=== PATIENT | female | born 1985 | race Caucasian/White ===

== ENCOUNTER 2017-01-08 14:10 | Outpatient (CLI) | payer OTHER ==
--- NOTE | 2017-01-13 10:45 | DIAGNOSTIC IMAGING REPORT ---
PROCEDURE: US SOFT TISSUE THYR/NECK/HEAD INDICATION: LYMPHADENOPATHY X 1YEAR TECHNIQUE: Tapia scale and color Doppler sonographic images of the neck were obtained. COMPARISON: None. FINDINGS: Bilateral lymph nodes inferior to the mandible, 2.4 x 1.1 x 0.5 cm on the left and 2.6 x 1.5 x 0.5 cm on the right. There are smaller diameter nodes seen along cervical chain bilaterally. There appears to be diminutive central fatty hilum and there is no increased vascularity. IMPRESSION: 1. Bilateral cervical adenopathy, likely reactive . Neoplastic changes are not excluded. If there has been significant increase in the size of the lymph nodes or if these are suspicious clinically, CT scan of the neck should be obtained. 2. Results discussed with Dr. Ann (Shira Varghese was not available).
== END 2017-01-08 23:00 | disposition home or self-care (01) ==
LOC: US SRH 14:10
DX: R59.9 Enlarged lymph nodes, unspecified (principal)